=== PATIENT | female | born 1990 | race Caucasian/White ===

== ENCOUNTER → 2020-11-12 10:10 | Outpatient (CLI) | payer OTHER, SELFPAY ==
--- NOTE | ~2020-11-12 | US_ITS ---
EXAMINATION: US breast LT limited HISTORY: Palpable lump at the 9:00 location of the left breast TECHNIQUE: Limited left breast ultrasound is performed in the area of clinical concern. FINDINGS: There is an 11 mm x 6 mm oval, circumscribed, parallel, hypoechoic mass with posterior enha ncement and a tract to the skin surface corresponding to the area of palpable concern. No suspicious cystic or solid mass is identified. IMPRESSION: Findings consistent with a sebaceous cyst corresponding to the palpable abnormality of concern. BI-RADS Category 2: Benign finding(s). Reviewed, dictated and finalized at location A. EYOR OIL WELL DIRECTIONAL IMPRESSION: Findings consistent with a sebaceous cyst corresponding to the palpable abnorma lity of concern. BI-RADS Category 2: Benign finding(s).
== END ==
PROVIDERS: Visit Provider Nurse Practitioner Obstetrics & Gynecology
DX: N63.20 Unspecified lump in the left breast, unspecified quadrant (principal)
CPT/HCPCS: 76642